=== PATIENT | male | born 1950 | race Caucasian/White ===

== ENCOUNTER 2018-02-08 19:23 | Inpatient (IN) | payer OTHER, MEDICARE ==
[~2018-02-08 19:23] MED LIST: ISOVUE-370 76%-LOCM 1 ML ONE
[2018-02-08] MEDS ORDERED: Ondansetron HCl/PF 4 MG/2 ML Vial ONE ×2 (20:22→21:00)
[2018-02-08] MEDS ORDERED: Fentanyl 100 MCG/2 ML VIAL ONE ×2 (21:00→23:31)
--- NOTE | 2018-02-08 21:10 | RAD ---
FRONTAL RADIOGRAPH CHEST 02/08/18 COMPARISON: None. HISTORY: Fall, trauma, pain. FINDINGS: There is an obliquely oriented and comminuted distal left clavicle fracture. No pneumothorax, pleural fluid, lobar consolidation, or alveolar edema. IMPRESSION: Distal left clavicle fracture. POS: [facility]
--- NOTE | 2018-02-08 21:11 | RAD ---
THREE VIEWS OF THE LEFT SHOULDER: 02/08/18 COMPARISON: None. HISTORY: Injury, trauma, pain. FINDINGS: There is a comminuted obliquely oriented distal left clavicle fracture. There is no widening of the acromioclavicular interspace. There is mild widening of the coracoclavicu lar interspace which may signify underlying coracoclavicular ligament tear. No dislocation noted. IMPRESSION: Comminuted obliquely oriented mildly displaced distal left clavicle fracture with widening of the co racoclavicular interspace. POS: [facility]
--- NOTE | 2018-02-08 21:13 | RAD ---
TWO VIEWS OF THE LEFT RIBS: 02/08/18 COMPARISON: None. HISTORY: Injury, trauma, pain. FINDINGS: Two view examination of the left ribs demonstrate a fracture involving the posterior left 6th rib. No definite additional displaced fracture is seen. There is a comminuted obliquely oriented distal left clavicle fracture. IMPRESSION: Distal left clavicle fracture. Posterior left 6th rib fracture noted. POS: [facility]
[2018-02-08 21:28] LABS: #Basophils 0.1 thou/uL (0.0-0.2); #Lymphocytes 0.7 thou/uL (1.20-3.40); #Monocytes 0.5 thou/uL (0.11-0.59); #Neutrophils 13.9 thou/uL (1.40-6.50); %Basophils 0.4 % (0.0-1.0); %Eosinophils 0.2 % (0.0-10.0); %Lymphocytes 4.8 % (21.0-51.0); %Monocytes 3.4 % (0.0-10.0); %Neutrophils 91.2 % (42.0-75.0); Hemoglobin 14.3 g/dL (14.0-18.0); Mean Corpuscular HGB CONC 32.3 g/dL (32.0-36.0); Mean Corpuscular Hemoglobin 28.2 pg (27.0-31.0); Mean Corpuscular Volume 87.3 fL (78.0-98.0); Mean Platelet Volume 7.9 fL (7.4-10.4); Platelet Count 214 thou/uL (130-400); RBC Distribution Width 12.9 % (11.5-14.5); Red Blood Cell (RBC) Count 5.06 mill/uL (4.70-6.10); White Blood Cell (WBC) Count 15.3 thou/uL (4.8-10.8)
[2018-02-08 21:48] LABS: ALT (SGPT) 20 U/L (8-55); AST (SGOT) 41 U/L (5-34); Albumin 4.6 g/dL (3.4-4.8); Alkaline Phosphatase 70 U/L (40-150); Anion Gap 16 mmol/L (10-20); BUN (Urea Nitrogen) 30 mg/dL (8.4-25.7); Bilirubin, Total 0.5 mg/dL (0.2-1.2); Calc. Creatinine Clearance 0 mL/min (70-130); Calcium 9.4 mg/dL (7.8-10.44); Carbon Dioxide 20 mmol/L (23-31); Chloride 105 mmol/L (98-107); Estimated GFR-MDRD 71; Globulin 3.3 g/dL (2.4-3.5); Glucose 115 mg/dL (80-115); Potassium 3.7 mmol/L (3.5-5.1); Protein, Total 7.9 g/dL (5.8-8.1); Sodium 137 mmol/L (136-145)
--- NOTE | 2018-02-08 22:29 | CT ---
HEAD CT WITHOUT CONTRAST 02/08/18 COMPARISON: None. HISTORY: Fall, pain. TECHNIQUE: Serial axial CT imaging obtained at 5 mm intervals from vertex through skull base without contrast. FINDINGS: The imaged paranasal sinuses and mastoid air cells appear grossly unremarkable. There is a radha ciste rna magna noted. There are subtle linear areas of increased density within scattered cortical sulci b ilaterally including the left posterior frontal lobe on image 18 through 20 as well as in the region of the right frontal lobe on image 18 suggesting small volume subarachnoid blood. No displaced calvarial fracture. IMPRESSION: Findings suggesting small volume bilateral subarachnoid blood. Results called to Lyla Bond at 10:20 p.m., 02/08/18. Code CR POS: [facility]
--- NOTE | 2018-02-08 22:36 | CT ---
CERVICAL SPINE CT WITHOUT CONTRAST: 02/08/18 COMPARISON: None. HISTORY: Trauma, pain. TECHNIQUE: Serial axial CT imaging at 2.5 mm intervals from the skull base through the lung apices without contr ast. Coronal and sagittal reformatted imaging obtained. FINDINGS: There is degenerative change involving the atlantoaxial interspace. Craniocervical and cervicothoraci c junction appear intact. Bilateral laminectomy change at C5-6 and C6-7 noted. There is a posterior first rib fracture on the right. There is a medial third rib fracture on the rig ht. Imaged lung apices demonstrate emphysematous change. There is pleural thickening involving the imaged left lung apex. The C1 ring appears intact. The occipital condyles, the dens and the C1-2 articulation appear grossly unremarkable. No evidence for an acute cervical spine fracture is noted. Subtle obliquely oriented nondisplaced second rib fracture seen medially. IMPRESSION: Right sided rib fractures. Subtle obliquely oriented nondisplaced second rib fracture seen medially. Results discussed with Lyla Bond at 10:20 p.m. on 02/08/18. Code CR POS: [facility]
--- NOTE | 2018-02-08 22:54 | CT ---
CT CHEST WITH IV CONTRAST CT ABDOMEN AND PELVIS WITH IV CONTRAST CT THORACIC SPINE NONCONTRAST CT LUMBAR SPINE NONCONTRAST 02/08/18 HISTORY: Fall, left shoulder injury and pain. FINDINGS: Mild atelectasis at the lung bases. Emphysematous changes to the lungs. No evidence of pneumothorax . Nondisplaced fractures involve the lateral aspects of ribs four and five. Mildly displaced fracture i nvolves the posterolateral aspect of left rib six. Mild atelectasis at the lung bases. No mediastinal hematoma. Small cysts are associated with the cortex of the kidneys. The liver, spleen, adrenal glan ds, and pancreas are unremarkable. Small hiatal hernia with gastroesophageal reflux. Calcification wi thin the arterial structures. Urinary bladder is intact. Degenerative changes throughout the vertebral bodies and facets of the thoracolumbar spine. Vertebral body heights and alignment are maintained. IMPRESSION: Nondisplaced and mildly displaced left mid rib fractures. No evidence of pneumothorax. Atherosclerosis. Hiatal hernia with gastroesophageal reflux. POS: [facility]
[2018-02-08 23:14] LABS: Bilirubin Large (Negative); Blood, Urine Negative (Negative); Clarity CLEAR (Clear); Glucose, Urine (Dipstick) Negative (Negative); Leukocyte Negative (Negative); Nitrite Negative (Negative); Protein, Urine (Dipstick) Negative (Neg-Trace); Specific Gravity, Urine 1.028 (1.002-1.036); Urobilinogen 0.2 mg/dL (0.2-1.0)
[2018-02-08] MEDS ORDERED: Dextrose 5% in Water 1,000 ML IV PRN (23:24)
[2018-02-08] MEDS ORDERED: Ondansetron HCl/PF 4 MG/2 ML Vial IVP PRN (23:24)
[2018-02-08] MEDS ORDERED: Dextrose 50% Abboject 50 ML SYRINGE SLOW IVP PRN (23:24)
[2018-02-08] MEDS ORDERED: TETANUS AND DIPHTHERIA TOX/PF 0.5 ML DISP.SYRIN IM ONE (23:24)
[2018-02-08] MEDS ORDERED: Rib Fracture Protocol PO SCH (23:30)
[2018-02-08] MEDS ORDERED: Cyclobenzaprine 10 MG TAB PO PRN (23:48)
[2018-02-08] MEDS ORDERED: traMADol HCl 50 MG TAB PO SCH (23:59)
[2018-02-08] MEDS ORDERED: Acetaminophen 325 MG TAB PO SCH (23:59)
[2018-02-09] MEDS: HYDROcodone/Acetaminophen 10/325 mg Tablet PO PRN ×2 (02:58→13:12)
[2018-02-09 04:00] VITALS: BMI 26.4
[2018-02-09] MEDS: traMADol HCl 50 MG TAB PO SCH ×2 (05:00→08:21)
[2018-02-09] MEDS: Acetaminophen 325 MG TAB PO SCH ×2 (05:00→08:22)
--- NOTE | 2018-02-09 08:11 | CT ---
PRELIMINARY REPORT/[facility]/EMERGENTY AFTER-HOURS PROCEDURE CT Head Without Intravenous Contrast CLINICAL HISTORY: 67 years old, male; Condition or disease; Other: Sah; Patient HX: F/u sah TECHNIQUE: Axial computed tomography images of the head/brain without intravenous contrast. COMPARISON: CT Brain WO Con 02/08/2018 10:12 PM FINDINGS: The prior exam showed small amounts of subarachnoid blood in the parietal/temporal regions bilaterall y. Currently, the previously seen subarachnoid blood is no longer easily perceptible, possibly a very miles btle amount visible in the left parietal region. No definite new hemorrhage in the interval. No mass effect or midline shift. Ventricle size is normal for age. No definite acute infarct by CT. No definite acute skull fracture. Included paranasal sinuses are essentially clear. IMPRESSION: The previously seen subarachnoid blood is no longer easily perceptible, possibly a very subtle amount visible in the left parietal region. No definite new hemorrhage in the interval. No mass effect or midline shift. Thank you for allowing us to participate in the care of your patient. Dictated and Authenticated by: Tato Bal MD 02/09/2018 6:04 AM Central Time ([place] & [place]) FINAL REPORT CT HEAD NONCONTRAST: DATE: 02/09/2018. TIME: Performed on an emergency basis at 0425 hours. HISTORY: Subarachnoid hemorrhage. Followup. COMPARISON: 02/08/2018. FINDINGS: Agree with the preliminary report by Dr. Bal. Interval resolution of the bilateral subarachnoid he morrhage. No new abnormalities are demonstrated. POS: [facility]
[2018-02-09] MEDS ORDERED: Famotidine 20 MG TAB PO SCH (09:00)
[2018-02-09] MEDS ORDERED: Gabapentin 100 MG CAP PO SCH (09:00)
--- NOTE | 2018-02-09 09:08 | HP ---
DATE OF SERVICE: 02/08/2018 Referred by Lyla Bond NP in the emergency department. TRAUMA ATTENDING: Dr. Nigel Barr. REASON FOR CONSULTATION: 1. Fall with subarachnoid bleed. 2. Clavicle fracture. 3. Multiple rib fractures. HISTORY OF PRESENT ILLNESS: Mr. Rhodes is a 67-year-old male with a past medical history of hypertension, PTSD, peripheral neuropathy, and GERD who presents to the emergency department today status post fall from a 6-foot ladder as he was trimming with a chainsaw striking his head. This happened sometime in the evening, unable to give exactly what time. Possible loss of consciousness. Complains of a headache, rib pain and chest pain. CT head demonstrates bilateral small subarachnoid hemorrhages. He has a left clavicular fracture and three left posterior rib fractures, mildly displaced. No other radiographic abnormalities on CT chest, abdomen, and pelvis. Chest x- ray was negative. Shoulder x-ray shows the clavicular fracture. According to the emergency department physician, patient has been neurovascularly intact throughout. He was noted to have a slight leukocytosis and slightly elevated BUN. Today, creatinine is 1.05 and his urine has large amount of bilirubin and trace ketones, otherwise laboratory data is normal. The patient is not on any anticoagulation and not on any antiplatelet agents. I evaluated the patient in the emergency department. He is alert and oriented to person, place, time, and event. His only complaint is a posterior rib pain in that he needed to be. The patient was noted to have urinary retention and he takes finasteride daily. He does have difficulty with urination and on CT scan noted to have a distended bladder for which we have requested a decompression with straight cath versus Xavier catheter, nurse has actually already placed a Xavier catheter draining high volume of yellow urine. Neurosurgery, Dr. Deal's PA was consulted in the emergency department. The patient has no chest pain other than the rib pain and the clavicle pain. No shortness of breath, no abdominal pain, no nausea, no vomiting, and only reports of a mild headache. REVIEW OF SYSTEMS: Pertinent positive and negative per HPI, otherwise 12-point review of systems is negative. PAST MEDICAL HISTORY: 1. Hypertension. 2. PTSD. 3. Peripheral neuropathy. 4. Gastroesophageal reflux disease. PAST SURGICAL HISTORY: Neck surgery x2, the last in 2006, finger surgery as a child. MEDICATIONS: Finasteride 5 mg; Lyrica, unknown dose; etodolac 200 mg t.i.d., tramadol 50 mg 3 times daily, Zoloft 100 mg daily, lisinopril 20 mg daily. ALLERGIES: TYLENOL #3 causing dizziness. PRIMARY CARE PHYSICIAN: Out of the [facility] in [place]. FAMILY HISTORY: Significant for coronary artery disease paternally and maternally liver cancer. SOCIAL HISTORY: Patient currently lives with his as family locally and is a former smoker but has not smoked in years. Currently, still chews tobacco. Socially drinks alcohol, but he has never had alcohol withdrawal and does not want to answer questions about illicit drug use. PHYSICAL EXAMINATION: VITAL SIGNS: Blood pressure is 125/94, heart rate is 100, breathing 19 times per minute. He is 95% on room air. GENERAL: He is a 67-year-old male lying supine in bed, has a C-collar in place and in no acute distress. HEENT: Normocephalic, atraumatic. Trachea is midline. Dry mucous membranes are appreciated. NECK: No JVD. RESPIRATORY: Equal rise and fall. Bilateral breath sounds. Clear to auscultation upper and lower bilaterally. No rubs or wheezes noted. CHEST: He has a deformity to the left clavicle and some tenderness to the posterior left thorax consistent with his rib fractures. CARDIOVASCULAR: Slight tachycardia, rate of 100. Regular rate and rhythm. No murmurs are appreciated. Strong pulses in 4 extremities and no edema is noted. ABDOMEN: Soft and nontender. No masses, guarding, rigidity or distention is appreciated. GENITOURINARY: He has a Xavier in place with yellow urine noted. MUSCULOSKELETAL: Moves extremities well. No richard deformities. Does have some limited range of motion of the left upper extremity secondary to his clavicular fracture. NEUROLOGIC: Patient is alert and oriented to person, place, time, and event. Pupils are equal, round, and reactive to light bilaterally and consensually. He has no nystagmus. Extraocular movements are intact bilaterally. Normal speech. [employer] Director is 5/5. Upper strength is 5/5 upper and lower bilaterally. Cranial nerves II-XII are normal. Normal [id number] and [id number] bilaterally. PSYCHIATRIC: Normal mood and affect. DIAGNOSTIC DATA: CT chest, abdomen, and pelvis demonstrates a left clavicle fracture, ribs 4, 5 and 6 fractures, hiatal hernia and a distended bladder is also noted. A CT C-spine negative for spinal fracture. Rib x-ray demonstrates the rib fracture. Shoulder x-ray demonstrates a left clavicular fracture, mildly displaced. CT head shows bilateral small subarachnoid hemorrhages. LABORATORY DATA: A white blood cell count of 15.3, platelets 240, hemoglobin and hematocrit 14.3 and 44.2 respectively. Chemistry: Sodium is 137, potassium 3.7, chloride is 105, CO2 is 20, BUN is 30, creatinine is 1.05, AST, ALT 41 and 20 respectively. Bilirubin total 0.5. Urine is significant for bilirubin and ketones. Patient has been given 1 liter of fluid. ASSESSMENT AND PLAN: 1. Bilateral small subarachnoid hemorrhages. 2. Acute traumatic pain. 3. Left clavicle fracture. 4. Multiple rib fractures. 5. Mild volume depletion. 6. Urinary Retention PLAN: 1. Patient has been given 1 liter of fluid. We will continue with p.o. fluid. 2. Discussed the case with Neurosurgery. They recommend q.2-hour neuro checks and I have already put in a repeat CT for 0400 hours in the morning. 3. Rib fracture protocol. 4. Manage acute pain. 5. Encourage IS according to rib fracture protocol. 6. We will place in a sling now for the clavicle fracture. 7. Consult Orthopedics in the morning. Reference clavicle fracture. 8. Once medicines are reconciled, we will continue his home neuropathy and psychiatric medications. 9. Oxygen as needed to maintain SpO2 greater than 92%. 10. Admit to the [facility] q.2-hour neuro checks. 11. Diet will be a regular diet. 12. FULL CODE. 13. Prophylaxis, famotidine. SCDs, will hold chemical DVT prophylaxis secondary to subarachnoid hemorrhage. Access of peripheral IVs and a Xavier catheter. 14. I have cleared C-spine in the ER, and removed his C-collar. DISPOSITION: IM. After repeat CT, likely can downgrade in the morning. I have coordinated care with the emergency department team, the Neurosurgery team, the bedside nurses. I have updated the patient and patient's family at the bedside and answered all questions. TARAN
--- NOTE | 2018-02-09 09:10 | CON ---
NEUROSURGICAL CONSULT HISTORY OF PRESENT ILLNESS: Mr. Rhodes was in approximately 8-foot ladder this evening, he had a ch ainsaw with him and he was cutting a tree limb down; when the tree limb fell, it landed on the ladder and crushed it, causing him to fall as well. He states that he fell, hit the back of his head. He did not lose consciousness. He has a little bit of numbness and tingling in his upper extremities an d lower extremities; however, he states he has peripheral neuropathy and is unsure if it is worse jimmy n it was previously. The patient states that he has pain in his ribs in the back and in his left riki ulder. The patient has history of cervical stenosis. He had a laminectomy in 2006 at the [place]. He is currently being worked up for lumbar radiculopathy. He is supposed to be getting an MRI later this month. The patient states that his neck is not bothering him, he has a little stiffness and he looks to the left, most of his pain is in the left shoulder and in the back. He is in good spirits, radha frias in his hospital room, has his and family with him. He does not appear to be in any visible di stress. REVIEW OF SYSTEMS: The patient denies any fever or chills. Denies abdominal pain, shortness of shahid th, difficulty swallowing. No chest pain or palpitations, no diarrhea, constipation, or urinary issu es. PAST MEDICAL HISTORY: Chronic back pain, hypertension, peripheral neuropathy, PTSD, and anxiety. PAST SURGICAL HISTORY: He had a laminectomy of the cervical spine in 2006 at the [place] and he had a fuad gerri on his finger in 1973. PSYCHIATRIC HISTORY: Anxiety, depression, PTSD. SOCIAL HISTORY: The patient drinks alcohol socially. He does not do any other illicit drugs. He is a former smoker. He lives in his home with his . He is retired [employer], recently moved to the [facility] approximately 3 months ago. CURRENT MEDICATIONS: Klonopin, Lyrica, etodolac, tramadol, sertraline, lisinopril, hydrochlorothiazi de. PHYSICAL EXAMINATION: VITAL SIGNS: Blood pressure 125/94, heart rate 101, respirations 18. Pain is 5. O2 sats 96 on room air. CONSTITUTIONAL: The patient is alert and oriented, resting well in his hospital bed. He is awake an d alert, oriented to person, place, and time. He is nontoxic, afebrile, does not appear to be in any visible distress. HEENT: Head: Normocephalic, atraumatic. Hearing is intact. Vision is intact. Moist mucous membra jonathan. Eyes: Pupils are equal, round, and reactive to light. Extraocular movements are intact. RESPIRATORY: Normal work of breathing on room air. CARDIAC: Regular rate and rhythm. Normal S1, S2. EXTREMITIES: The patient is moving all 4 extremities well. He has 5/5 strength bilaterally in delto ids, biceps, triceps, wrist extension, finger extension, 5/5 bilateral lower extremity, hip flexion, knee flexion, knee extension, dorsiflexion, plantar flexion. Negative Babinski. No clonus. Decreas ed sensation on the left compared to the right foot, has been ongoing [facility] This is not a new finding. NEUROLOGIC: The patient is alert and oriented to person, place, and time. Normal fund of knowledge and processing. Speech is spontaneous and fluent. Memory is intact, short and long-term. Cranial n erves II through XII are checked and intact. IMAGING: Brain without contrast, there is a small volume of bilateral subarachnoid hemorrhage. Ther e is a radha cisterna magna noted and subtle linear areas of increased density scattered cortical sulc i bilaterally consistent with small volume subarachnoid blood. CT cervical spine, there are degenerative changes bilateral laminectomy at C5-C6 and C6-C7, has right -sided rib fractures, nondisplaced second rib fracture seen medially. There is also a distal l eft clavicle fracture. ASSESSMENT AND PLAN: From a neurosurgery standpoint, there is a small amount of subarachnoid hemorrh age. The patient is not on any blood thinners and is alert and oriented, doing very well. There are no new neurological symptoms. At this time, we would like to monitor overnight. Neuro checks q.2 h ours. We would like to monitor his blood pressure and keep below 160 systolic and do a repeat CT bra in in the morning.
--- NOTE | 2018-02-09 09:37 | PRG ---
DATE OF SERVICE: 02/09/2018 I personally interviewed and examined the patient and agree with documentation of Griselda Eduardo PA-C dated 02/09/2018. SUBJECTIVE: Briefly, Mr. Chevy Rhodes is a 67-year-old gentleman cutting a limb off a tree in ord er to move his RV yesterday. He is on a ladder with a chainsaw when the limb give way and knocked th e ladder out from beneath him. He landed on the ground and was brought to the emergency department. Radiographs revealed a left clavicle fracture and rib fractures. In addition, a CT scan of the [facility] showed some traumatic subarachnoid blood in the sulci of the parietal lobes bilaterally and over th e tentorium. Neurosurgery was consulted. Mr. Rhodes was admitted to the [facility] overnight. He has been doing well. He is sitting up and drinki ng coffee as I entered the room this morning. His vital signs have been stable. I do not see any fe vers recorded. Mr. Rhodes is awake. He is alert. He is conversant. He has grossly normal cogniti ve function. He has good memory of the event. He is not amnestic. I do not see any lateralizing mo tor or sensory deficits and I do not appreciate any cranial neuropathies. I reviewed the CT imaging of the brain this morning and already the traumatic subarachnoid blood has washed out. There is no m ass effect. There is no midline shift. In the left upper extremity, there is good motor and sensory function all the way down to the hand. 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 My plan today for Mr. Rhodes is to allow our colleagues in Trauma Surgery Service to determine when discharge will be safe, we can follow up for his head injury in clinic in about 3 weeks. We will get one final CAT scan at that time. I did warn him that he can have continued headaches and even verti go after head injury like this and not to be on ladders until we see him again.
[2018-02-09 12:02] VITALS: BP 138/86; TEMP 98.5
--- NOTE | 2018-02-09 23:22 | DIS ---
DATE OF ADMISSION: 02/09/2018 DATE OF DISCHARGE: 02/09/2018 ADMISSION DIAGNOSES: 1. Status post fall. 2. Subarachnoid hemorrhage. 3. Left clavicle fracture. 4. Multiple left rib fractures. CONSULTATIONS: Neurosurgery, Dr. Marte. PROCEDURES: None. SUMMARY: Patient is a 67-year-old man who had climbed up a ladder to cut a tree branch when the bran ch pushed him off the ladder and he fell landing on his left side. The patient was brought to the em ergency department, underwent evaluation and examination and was noted to have the above injuries. Jefry e will be admitted overnight to the [facility] for serial exams. He had a repeat head CT this morning that had shown a marked improvement. The patient had no issues overnight. On the day of discharge, the patient was ambulatory, his pain was controlled, and he was tolerating a diet. He will follow up with Neurosurgery in 2-3 weeks for a repeat head CT. He will follow up wit trauma clinic in 2 weeks with a repeat chest x-ray and we will follow up with Orthopedics in 1-2 we eks. He may follow up with the Trauma Clinic sooner as needed.
[2018-02-10] MEDS ORDERED: Prevnar 13-Val Conj/PF 0.5 ML SYRINGE IM ONE (09:00)
== END 2018-02-09 14:32 | disposition home or self-care (01) | DRG 83 ==
LOC: ERS 19:23 → IMCU/EMU 02-09 01:59 → SURG A 02-09 11:25
PROVIDERS: ADMIT Surgery; ATTEND Surgery
DX: S06.6X9A Traumatic subarachnoid hemorrhage with loss of consciousness of unspecified duration, initial encounter (principal); S22.42XA Multiple fractures of ribs, left side, initial encounter for closed fracture; W11.XXXA Fall on and from ladder, initial encounter; S42.002A Fracture of unspecified part of left clavicle, initial encounter for closed fracture; I10 Essential (primary) hypertension; G62.9 Polyneuropathy, unspecified; F43.10 Post-traumatic stress disorder, unspecified; F41.9 Anxiety disorder, unspecified
CPT/HCPCS: 36415; 51702; 70450; 71045; 71260; 72125; 74177; 80053; 81003; 85025; 94640; 94760; 96361; 96374; 96375; 96376; G0390; G8978-GP-CK; G8979-GP-CK; G8980-GP-CK; J2405; J3010; J7620

== ENCOUNTER 2018-03-13 09:55 | Outpatient (CLI) | payer OTHER ==
--- NOTE | 2018-03-13 12:06 | CT ---
HEAD CT NONCONTRAST: Comparison: 02-09-18 Indication: History of prior intracranial hemorrhage. Follow up. FINDINGS: Prior intracranial hemorrhage has resolved. There is no acute intracranial hemorrhage, mass effect, o r midline shift. Arachnoid cyst/radha cisterna magna is again seen within the posterior cranial fossa. Exam is otherwise stable. IMPRESSION: Interval resolution of prior intracranial hemorrhage. No mass effect or midline shift. POS: [facility]
== END 2018-03-13 09:56 | disposition home or self-care (01) ==
LOC: TBSIIMAG 09:55
PROVIDERS: ATTEND Neurological Surgery
DX: S06.5X0A Traumatic subdural hemorrhage without loss of consciousness, initial encounter (principal)
CPT/HCPCS: 70450